=== PATIENT | female | born 1990 | race Caucasian/White ===

== ENCOUNTER 2017-08-28 00:56 | Emergency (ER) | payer BC, MEDICAID ==
[~2017-08-28] VITALS: Ht 170.2 cm; Wt 133.8 kg
[~2017-08-28 00:56] MED LIST: ARIP30TA PO; CEPH500C2; IBUP-1480; TOPI25TA8 PO; probiotics; vicodin
[2017-08-28 01:00] VITALS: BP_SYST 120
[2017-08-28 01:32] LABS: BILIRUBIN,URINE NEGATIVE (NEGATIVE); BLOOD, URINE NEGATIVE (NEGATIVE); CLARITY/URINE HAZY (CLEAR); COLOR,URINE YELLOW (YELLOW); GLUCOSE,URINE NEGATIVE (NEGATIVE); KETONES,URINE NEGATIVE (NEGATIVE); LEUKOCYTE ESTERASE ,URINE 1+ (NEGATIVE); NITRITE, URINE NEGATIVE (NEGATIVE); PROTEIN URINE NEGATIVE (NEGATIVE); UROBILINOGEN,URINE 0.2 (0.2-1.0)
[2017-08-28 01:35] LABS: BACTERIA,URINE MODERATE /HPF (None Seen); MUCUS,URINE None Seen /LPF (None Seen); RBC,URINE 0-3 /HPF (0-3)
[2017-08-28 03:51] VITALS: BP_SYST 128
[2017-08-30 00:18] LABS: CHLAMYDIA TRACHOMATIS NAA Negative (Negative); NEISSERIA GONORRHOEAE NAA Negative (Negative)
== END 2017-08-28 03:51 | disposition home or self-care (01) ==
LOC: SED 00:56
DX: N39.0 Urinary tract infection, site not specified (principal); J45.909 Unspecified asthma, uncomplicated; I10 Essential (primary) hypertension; F17.210 Nicotine dependence, cigarettes, uncomplicated; E66.01 Morbid (severe) obesity due to excess calories; Z68.42 Body mass index [BMI] 45.0-49.9, adult; Z79.899 Other long term (current) drug therapy; Z98.51 Tubal ligation status
CPT/HCPCS: 81000-TC; 81025; 87086; 87210-TC; 87491; 87591; 99284

== ENCOUNTER 2019-02-04 00:11 | Emergency (ER) | payer MEDICAID ==
[~2019-02-04] VITALS: Ht 172.7 cm; Wt 149.7 kg
[~2019-02-04 00:11] MED LIST changes: -IBUP-1480; +IBUP-1970; +TOPI25TA13 PO; -TOPI25TA8 PO
[2019-02-04 00:35] VITALS: BP_SYST 152
[2019-02-04] MEDS ORDERED: ARIP20TA4 PO (00:46)
--- NOTE | 2019-02-04 02:20 | NUR ---
PT AMBULATORY TO BED HALLWAY FOR EVALUATION
[2019-02-04 02:56] LABS: BILIRUBIN,URINE NEGATIVE (NEGATIVE); BLOOD, URINE NEGATIVE (NEGATIVE); CLARITY/URINE CLEAR (CLEAR); COLOR,URINE YELLOW (YELLOW); GLUCOSE,URINE NEGATIVE (NEGATIVE); KETONES,URINE NEGATIVE (NEGATIVE); LEUKOCYTE ESTERASE ,URINE NEGATIVE (NEGATIVE); NITRITE, URINE NEGATIVE (NEGATIVE); PH,URINE 5.5 (5.0-8.0); PROTEIN URINE NEGATIVE (NEGATIVE); UROBILINOGEN,URINE 0.2 (0.2-1.0)
[2019-02-04 04:38] LABS: BASOPHILS # (AUTO) 0.1 K/uL (0.0-0.2); BASOPHILS % (AUTO) 0.7 % (0.0-2.0); EOSINOPHILS # (AUTO) 0.4 K/uL (0.0-0.4); EOSINOPHILS % (AUTO) 3.1 % (0.0-4.0); HEMATOCRIT 40.6 % (36-48); HEMOGLOBIN 13.7 g/dL (12.0-16.0); LYMPHOCYTES # (AUTO) 4.6 K/uL (1.0-5.5); LYMPHOCYTES % (AUTO) 31.6 % (20.5-51.5); MEAN CORPUSCULAR HEMOGLOBIN 31 pg (27-31); MEAN CORPUSCULAR HGB CONC 34 % (32-36); MEAN CORPUSCULAR VOLUME 90 fL (79.0-98.0); MONOCYTES # (AUTO) 0.9 K/uL (0.0-1.0); MONOCYTES % (AUTO) 5.9 % (1.7-9.3); NEUTROPHILS # (AUTO) 8.5 K/uL (1.8-7.7); NEUTROPHILS % (AUTO) 58.7 % (40.0-70.0); PLATELET COUNT (AUTO) 242 K/uL (130-430); RED BLOOD CELL COUNT(AUTO) 4.49 MIL/uL (4.2-6.2); WHITE BLOOD COUNT (AUTO) 14.5 K/uL (4.8-10.8)
[2019-02-04 04:48] LABS: CREATININE 0.88 mg/dL (0.55-1.30); POTASSIUM 3.7 mmol/L (3.5-5.1)
[2019-02-04 04:54] LABS: ALBUMIN 3.3 g/dL (3.4-4.8); TOTAL BILIRUBIN 0.4 mg/dL (0.0-1.0)
[2019-02-04] MEDS ORDERED: MORPHINE 2 MG/ML INJ. SYRINGE IVP ONE (05:00)
[2019-02-04] MEDS ORDERED: NACL 0.9% 1,000 ML IV ONE (05:00)
--- NOTE | 2019-02-04 06:10 | NUR ---
Pt placed to Hallway bed with her son prior to administration of Morphine.
[2019-02-04 07:27] VITALS: BP_SYST 152
--- NOTE | 2019-02-04 07:32 | NUR ---
Patient given written and verbal discharge instructions and verbalizes understanding. ER MD discussed with patient the results and treatment provided. Patient in stable condition. ID arm band removed. IV catheter removed intact and dressing applied, no active bleeding. Rx of [place] given. Patient educated on pain management and to follow up with PMD. Pain Scale 0/10. Opportunity for questions provided and answered. Medication side effect fact sheet provided.
[2019-02-05 23:22] LABS: CHLAMYDIA TRACHOMATIS NAA Negative (Negative); NEISSERIA GONORRHOEAE NAA Negative (Negative)
== END 2019-02-04 07:27 | disposition home or self-care (01) ==
LOC: SED 00:11
DX: K76.0 Fatty (change of) liver, not elsewhere classified (principal); J45.909 Unspecified asthma, uncomplicated; I10 Essential (primary) hypertension
CPT/HCPCS: 36415; 74176; 80053; 81003; 82150; 83690; 85025; 87491; 87591; 96374; 99284; J2270; J7030

== ENCOUNTER 2019-09-30 01:43 | Emergency (ER) | payer MEDICAID ==
[~2019-09-30] VITALS: Ht 170.2 cm; Wt 158.8 kg
[~2019-09-30 01:43] MED LIST changes: +ARIP20TA4 PO; -ARIP30TA PO; -CEPH500C2; -IBUP-1970; -TOPI25TA13 PO; -probiotics; -vicodin
[2019-09-30 02:10] VITALS: BP_SYST 110
--- NOTE | 2019-09-30 02:10 | NUR ---
PT AAO AND AMBULATORY C/O BUG BITE YESTERDAY THAT FEELS WORSE TODAY ON HER RIGHT THIGH. PT REPORTS DISCOMFORT OF 2/10.
--- NOTE | 2019-09-30 02:15 | NUR ---
PT TO BE ASSESSED IN TRAIAGE BY William. NO BEDS AVAIL.
--- NOTE | 2019-09-30 02:20 | NUR ---
ER Dr. MCGARRY at bedside examining patient.
[2019-09-30 02:30] VITALS: BP_SYST 110
--- NOTE | 2019-09-30 02:30 | NUR ---
Patient given written and verbal discharge instructions and verbalizes understanding. DR. ZEFERINO PALACIOS MD discussed with patient the results and treatment provided. Patient in stable condition. ID arm band removed. IV catheter removed intact and dressing applied, no active bleeding. Rx of BACTRIM AND KEFLEX given. Patient educated on pain management and to follow up with PMD. Pain Scale 2/10. Opportunity for questions provided and answered. Medication side effect fact sheet provided.
== END 2019-09-30 02:30 | disposition home or self-care (01) ==
LOC: SED 01:43
DX: L02.415 Cutaneous abscess of right lower limb (principal); L03.115 Cellulitis of right lower limb; J45.909 Unspecified asthma, uncomplicated; I10 Essential (primary) hypertension
CPT/HCPCS: 99283

== ENCOUNTER 2019-12-21 23:04 | Emergency (ER) | payer MEDICAID, SELFPAY ==
[~2019-12-21] VITALS: Ht 170.2 cm; Wt 163.3 kg
[2019-12-21 23:10] VITALS: BP_SYST 156
[2019-12-21] MEDS ORDERED: NACL 0.9% 1,000 ML IV ONE (23:36)
[2019-12-21 23:45] LABS: BILIRUBIN,URINE NEGATIVE (NEGATIVE); BLOOD, URINE NEGATIVE (NEGATIVE); CLARITY/URINE CLEAR (CLEAR); COLOR,URINE YELLOW (YELLOW); GLUCOSE,URINE NEGATIVE (NEGATIVE); KETONES,URINE NEGATIVE (NEGATIVE); LEUKOCYTE ESTERASE ,URINE NEGATIVE (NEGATIVE); NITRITE, URINE NEGATIVE (NEGATIVE); PROTEIN URINE NEGATIVE (NEGATIVE); UROBILINOGEN,URINE 0.2 (0.2-1.0)
[2019-12-21] MEDS ORDERED: MORPHINE 4 MG/ML INJ. SYRINGE IVP ONE (23:45)
[2019-12-21] MEDS ORDERED: PIPERACILLIN/TAZO 3.375 GM in NS 50 ML IV ONE (23:45)
[2019-12-21] MEDS ORDERED: ONDANSETRON HCL 4 MG/2 ML VIAL IVP ONE (23:45)
[2019-12-21 23:54] LABS: RED CELL DISTRIBUTION WIDTH 13.9 % (9.0-15.0)
[2019-12-21 23:59] LABS: BASOPHILS # (AUTO) 0.1 K/uL (0.0-0.2); BASOPHILS % (AUTO) 0.9 % (0.0-2.0); EOSINOPHILS # (AUTO) 0.2 K/uL (0.0-0.4); EOSINOPHILS % (AUTO) 1.8 % (0.0-4.0); HEMATOCRIT 42.2 % (36-48); HEMOGLOBIN 14.7 g/dL (12.0-16.0); LYMPHOCYTES # (AUTO) 4.4 K/uL (1.0-5.5); LYMPHOCYTES % (AUTO) 36.6 % (20.5-51.5); MEAN CORPUSCULAR HEMOGLOBIN 30 pg (27-31); MEAN CORPUSCULAR HGB CONC 35 % (32-36); MEAN CORPUSCULAR VOLUME 86 fL (79.0-98.0); MONOCYTES # (AUTO) 0.8 K/uL (0.0-1.0); NEUTROPHILS # (AUTO) 6.5 K/uL (1.8-7.7); NEUTROPHILS % (AUTO) 53.7 % (40.0-70.0); PLATELET COUNT (AUTO) 287 K/uL (130-430); WHITE BLOOD COUNT (AUTO) 12.1 K/uL (4.8-10.8)
[2019-12-22] MEDS ORDERED: PIPERACILLIN/TAZOBACTAM 3.375 GM/VIAL (ZOSYN) IV ONE (00:07)
[2019-12-22 00:09] LABS: CALCIUM 8.9 mg/dL (8.4-11.0); CREATININE 0.92 mg/dL (0.55-1.30); POTASSIUM 3.6 mmol/L (3.5-5.1)
[2019-12-22 00:14] LABS: ALBUMIN 3.9 g/dL (3.4-4.8); TOTAL BILIRUBIN 0.8 mg/dL (0.0-1.0)
[2019-12-22] MEDS ORDERED: MORPHINE 4 MG/ML INJ. SYRINGE IVP ONE (01:45)
[2019-12-22] MEDS ORDERED: ONDANSETRON HCL 4 MG/2 ML VIAL IVP ONE (01:45)
[2019-12-22 02:30] VITALS: BP_SYST 122
== END 2019-12-22 02:30 | disposition home or self-care (01) ==
LOC: SED 23:04
DX: R10.31 Right lower quadrant pain (principal); I10 Essential (primary) hypertension; J45.909 Unspecified asthma, uncomplicated; Z20.828 Contact with and (suspected) exposure to other viral communicable diseases
CPT/HCPCS: 36415; 74177; 76830; 76857; 80053; 81003; 81025; 83605; 83690; 85025; 87040; 87426; 96361; 96374; 96375; 96376; 99285; J2270; J2405; J2543; J7030; Q9967